=== PATIENT | female | born 1990 | race Caucasian/White ===

== ENCOUNTER 2022-10-19 17:02 | Inpatient (IN) | payer BC, MEDICAID ==
[~2022-10-19] VITALS: Ht 170.2 cm; Wt 93.0 kg
[~2022-10-19 17:02] MED LIST: LACT1CAP65 PO; NO HOME MEDS
[2022-10-19 18:56] LABS: BASOPHILS % (AUTO) 0.2 % (0-1); EOSINOPHILS % (AUTO) 0.1 % (0-6); HEMATOCRIT 41.4 % (35.0-45.0); HEMOGLOBIN 13.8 g/dl (12.0-16.0); LYMPHOCYTES # (AUTO) 0.7 X10'3 (1.1-4.8); LYMPHOCYTES % (AUTO) 4.2 % (21-51); MEAN CORPUSCULAR HEMOGLOBIN 28.5 PG (27.0-31.0); MEAN CORPUSCULAR HGB CONC 33.2 g/dL (33.0-36.5); MEAN CORPUSCULAR VOLUME 85.7 FL (78-98); MEAN PLATELET VOLUME 7.7 FL (7.4-10.4); MONOCYTES # (AUTO) 1.2 X10'3 (0-0.9); MONOCYTES % (AUTO) 6.9 % (2-12); NEUTROPHILS # (AUTO) 14.8 X10'3 (1.8-7.7); NEUTROPHILS % (AUTO) 88.6 % (42-75); PLATELET COUNT 240 X10'3 (140-440); RED BLOOD COUNT 4.83 X10'6 (4.20-5.60); RED CELL DISTRIBUTION WIDTH 14.2 % (11.5-14.5); WHITE BLOOD COUNT 16.7 X10'3 (4.5-11.0)
[2022-10-19] MEDS ORDERED: ondansetron/PF 4mg/2ml inj IV ONE (19:10)
[2022-10-19] MEDS ORDERED: morphine 4 MG/ML inj SYRINge IV ONE (19:10)
[2022-10-19] MEDS ORDERED: ketorolac tromethamine 15mg/ml inj. IV ONE (19:10)
[2022-10-19 19:16] LABS: ALANINE AMINOTRANSFERASE 31 U/L (12-78); ALBUMIN 3.5 G/DL (3.4-5.0); ALBUMIN/GLOBULIN RATIO 0.9 (1.1-1.5); ALKALINE PHOSPHATASE 77 IU/L (46-116); ANION GAP 9 (8-16); ASPARTATE AMINO TRANSFERASE 28 U/L (10-37); BILIRUBIN,TOTAL 0.8 MG/DL (0.1-1.0); BLOOD UREA NITROGEN 13 MG/DL (7-18); BUN/CREATININE RATIO 12.9 (6.6-38.0); CALCIUM 8.9 MG/DL (8.5-10.1); CHLORIDE 99 MMOL/L (99-107); CREATININE 1.01 MG/DL (0.40-0.90); GLUCOSE 99 MG/DL (70-104); LIPASE < 50 U/L (73-393); SODIUM 132 MMOL/L (135-145); TOTAL CARBON DIOXIDE 24.3 MMOL/L (24-32); TOTAL PROTEIN 7.3 G/DL (6.4-8.2); eGFR 65 ML/MIN
[2022-10-19 19:21] LABS: CLARITY,URINE CLOUDY (Clear); COLOR,URINE YELLOW (Yellow); GLUCOSE, URINE NEGATIVE (Neg); KETONES,URINE 15 mg/dl (Neg); LEUKOCYTE ESTERASE ,URINE LARGE (Neg); NITRITES, URINE POSITIVE (Neg); OCCULT BLOOD,URINE SMALL (Neg); PROTEIN,URINE 30 mg/dl (Neg); UROBILINOGEN,URINE 0.2 E.U/dL (0.2-1.0)
[2022-10-19 19:25] LABS: UA COLLECTION TYPE CLN CATCH MIDSTREAM
[2022-10-19] MEDS ORDERED: CefTRIAXone 2gm/D5W 50ml BAG 50 ML IV ONE (19:25)
[2022-10-19] MEDS ORDERED: normal saline 1000ML IV soln IV ONE (19:25)
[2022-10-19 19:27] LABS: BACTERIA,URINE 3+ /HPF (Neg); SQUAMOUS EPITHELIAL CELL,UR FEW /LPF (FEW); WBC,URINE TNTC /HPF (0-4)
[2022-10-19 19:35] LABS: URINE HCG NEGATIVE (NEG)
[2022-10-19] MEDS ORDERED: temazepam 15mg capsule PO PRN (21:00)
[2022-10-19] MEDS ORDERED: acetaminophen 325mg tablet PO PRN ×2 (21:45)
[2022-10-19] MEDS ORDERED: magnesium Cl slow-release 64mg tablet PO PRN (21:45)
[2022-10-19] MEDS: nicotine 14mg patch - 24hr TD SCH (21:45)
[2022-10-19] MEDS ORDERED: morphine 2 MG/ML inj. syringe IV PRN (21:45)
[2022-10-19] MEDS ORDERED: HYDROcodone/acetaminophen 5mg/325mg tablet PO PRN (21:45)
[2022-10-19] MEDS ORDERED: potassium Cl 20 mEq SR tablet PO PRN ×2 (21:45)
[2022-10-19] MEDS ORDERED: magnesium 4gm in 100ml NS 100 ML IV PRN (21:45)
[2022-10-19] MEDS ORDERED: potassium Cl 40MEQ/1/2NS 520ml 520 ML IV PRN (21:45)
[2022-10-19] MEDS: pantoprazole 40MG/NS 100ML BAG 100 ML IV SCH (22:56)
[2022-10-19] MEDS: HYDROcodone/acetaminophen 10/325mg tab PO PRN (22:56)
[2022-10-19] MEDS: normal saline 1000ml 1,000 ML IV SCH (23:10)
[2022-10-20] VITALS (7 sets, daily range): BP systolic 98–122; BP diastolic 62–79
[2022-10-20 03:34] LABS: BASOPHILS % (AUTO) 0.1 % (0-1); EOSINOPHILS % (AUTO) 0.1 % (0-6); HEMATOCRIT 36.5 % (35.0-45.0); LYMPHOCYTES # (AUTO) 0.6 X10'3 (1.1-4.8); MEAN CORPUSCULAR HEMOGLOBIN 28.6 PG (27.0-31.0); MEAN CORPUSCULAR HGB CONC 32.9 g/dL (33.0-36.5); MEAN CORPUSCULAR VOLUME 86.8 FL (78-98); MEAN PLATELET VOLUME 7.6 FL (7.4-10.4); MONOCYTES # (AUTO) 0.8 X10'3 (0-0.9); MONOCYTES % (AUTO) 6.4 % (2-12); NEUTROPHILS # (AUTO) 11.3 X10'3 (1.8-7.7); NEUTROPHILS % (AUTO) 88.4 % (42-75); PLATELET COUNT 149 X10'3 (140-440); RED CELL DISTRIBUTION WIDTH 14.6 % (11.5-14.5); WHITE BLOOD COUNT 12.8 X10'3 (4.5-11.0)
[2022-10-20 03:51] LABS: ALANINE AMINOTRANSFERASE 21 U/L (12-78); ALBUMIN 2.7 G/DL (3.4-5.0); ALBUMIN/GLOBULIN RATIO 0.8 (1.1-1.5); ALKALINE PHOSPHATASE 65 IU/L (46-116); ANION GAP 7 (8-16); ASPARTATE AMINO TRANSFERASE 20 U/L (10-37); BILIRUBIN,TOTAL 0.6 MG/DL (0.1-1.0); BLOOD UREA NITROGEN 11 MG/DL (7-18); BUN/CREATININE RATIO 10.8 (6.6-38.0); CALCIUM 7.8 MG/DL (8.5-10.1); CHLORIDE 104 MMOL/L (99-107); CREATININE 1.02 MG/DL (0.40-0.90); GLUCOSE 87 MG/DL (70-104); POTASSIUM 3.8 MMOL/L (3.5-5.1); SODIUM 135 MMOL/L (135-145); TOTAL CARBON DIOXIDE 24.1 MMOL/L (24-32); TOTAL PROTEIN 5.9 G/DL (6.4-8.2); eGFR 64 ML/MIN
--- NOTE | 2022-10-20 04:47 | NUR ---
Provider notified of recurrent fever, provider advised additional administration of tylenol.
[2022-10-20] MEDS: HYDROcodone/acetaminophen 10/325mg tab PO PRN ×3 (04:51→21:34)
[2022-10-20] MEDS: normal saline 1000ml 1,000 ML IV SCH ×3 (07:31→21:45)
[2022-10-20] MEDS: heparin, porcine 5000 units/ml vial SQ SCH ×2 (07:36→20:00)
[2022-10-20] MEDS: pantoprazole 40MG/NS 100ML BAG 100 ML IV SCH (07:36)
[2022-10-20] MEDS: nicotine 14mg patch - 24hr TD SCH (07:38)
[2022-10-20] MEDS: morphine 2 MG/ML inj. syringe IV PRN ×3 (08:40→22:16)
[2022-10-20] MEDS: CefTRIAXone 2gm/D5W 50ml BAG 50 ML IV SCH (08:40)
[2022-10-20] MEDS: ondansetron/PF 4mg/2ml inj IV PRN ×3 (10:04→22:11)
--- NOTE | 2022-10-20 10:49 | NUR ---
PAGE SENT TO DR CHILDERS AT THIS TIME PER PATIENT REQUEST FOR PRN TORADOL INJECTION. PATIENT STATES MORPHINE AND NORCO DID NOT HELP WITH PAIN "...ENOUGH...".
--- NOTE | 2022-10-20 15:16 | NUR ---
Pt arrived to PCU at 1450 and down to surgery with Dr Mora at 1515.
[2022-10-20] MEDS ORDERED: iohexol 350MG/ML 100ml bottle IV ONE (15:18)
[2022-10-20] MEDS ORDERED: meperidine/PF 25mg/ml syringe IV PRN ×3 (15:20)
[2022-10-20] MEDS ORDERED: proCHLORperazine 10 MG/2 ml inj IV PRN (15:20)
[2022-10-20] MEDS ORDERED: morphine 4 MG/ML inj SYRINge IV PRN (15:20)
[2022-10-20] MEDS ORDERED: morphine 2 MG/ML inj. syringe IV PRN (15:20)
[2022-10-20] MEDS ORDERED: ondansetron/PF 4mg/2ml inj IV PRN (15:20)
[2022-10-20] MEDS ORDERED: ringers solution, lacted 1,000 ML IV SCH (15:20)
[2022-10-20] MEDS ORDERED: midazolam 1 mg/ML 2ml injection ONE (15:28)
[2022-10-20] MEDS ORDERED: FENTANYL CITRATE/PF 50 MCG/1 ML VIAL ONE (15:28)
[2022-10-20] MEDS ORDERED: rocuronium 10mg/ml inj IV ONE (15:32)
[2022-10-20] MEDS ORDERED: propofol inj 20 ML IV ONE (15:32)
[2022-10-20] MEDS ORDERED: LIDOcaine 2% (20mg/ml) 5ml vial ONE (15:32)
[2022-10-20] MEDS ORDERED: sevoflurane 250ml liquid IH ONE (15:42)
[2022-10-20] MEDS ORDERED: acetaminophen 1,000mg/100ml IV 100 ML IV ONE (16:08)
[2022-10-20] MEDS ORDERED: iohexol 350 MG/ML 50ML vial IV ONE (16:23)
[2022-10-20] MEDS ORDERED: neostigmine methylsulfate 1 MG/ML 10ml vial ONE (16:28)
[2022-10-20] MEDS ORDERED: glycopyrrolate 0.2mg/ml inj ONE (16:28)
[2022-10-20] MEDS ORDERED: dexamethasone sod phosphate 4mg/ml inj. ONE (16:28)
[2022-10-20] MEDS ORDERED: ondansetron/PF 4mg/2ml inj ONE (16:28)
[2022-10-20] MEDS ORDERED: sugammadex 200mg/2ml injection IV ONE (16:33)
[2022-10-20] MEDS ORDERED: meperidine/PF 25mg/ml syringe ONE (16:49)
--- NOTE | 2022-10-20 16:51 | NUR ---
RECEIVED PATIENT FROM THE OPERATING ROOM IN STABLE CONDITION. REPORT RECEIVED FROM ANESTHESIOLOGIST, DR LOMELI. PT DENIES PAIN, SLEEPY BUT AROUSABLE. VITAL SIGNS STABLE
--- NOTE | 2022-10-20 17:21 | NUR ---
REPORT CALLED TO TERRY LYNCH IN [place]. PT TRANSFERRED IN STABLE CONDITION VIA HOSPITAL BED TO THE FLOOR.
--- NOTE | 2022-10-21 | NUR ---
Pt. is awake alert oriented c/o constipation for several days received oil enema and is now having multiple light brown bm. Had one very large formed ball-like mass. Medicated for mild discomfort. pt states feels better and was able to rest. Addendum: 10/21/22 at 1913 by Dee Dee Forman RN Wrong Patient:Disregard
--- NOTE | 2022-10-21 | NUR ---
Pt. is awake alert oriented post op day 1 c/o painful urination post op. small amt of bleeding drops of pinkish serosanguineous drainage. IV infusing NS @125.Urine axel orange color large amts.. Medicated with alternating Morphine to Narco. Has effective pain relief but states is nervous and unable to sleep. Pt. is worried about kids. Would like to go home on pain meds.
[2022-10-21] MEDS: HYDROcodone/acetaminophen 10/325mg tab PO PRN ×6 (01:23→22:11)
[2022-10-21] MEDS: morphine 2 MG/ML inj. syringe IV PRN ×4 (02:05→19:27)
[2022-10-21 02:11] VITALS: BP 114/82
--- NOTE | 2022-10-21 04:00 | NUR ---
Pt. is tolerating fluids and clear liquid diet , c/o swelling hands and feet. IV changed to tko for now.
--- NOTE | 2022-10-21 05:00 | NUR ---
Night summary Pt. is awake alert post op day 1ureteral stent placement. IV NS infusing at 125ml/hr. C/o serosanguineous drainage after voiding medicated for pain as needed. Small stones filtered from urine small white specks small red clots and a larger black stone. Takes po fluid and clear liq diet well drinking large amts of fluids voiding frequently per BS commode. During the shift , pt. c/o having increased pain medicated alternating between po and IV administration. C/o swelling in hands and feet; IV decreased to TKO.
--- NOTE | 2022-10-21 05:00 | NUR ---
Addendum:Pt. states unable to sleep feels anxious would like to get home to children when cleared to go home. Will request from primary antianxiety med or sleeping pill as needed.
[2022-10-21] MEDS: normal saline 1000ml 1,000 ML IV SCH ×3 (05:47→21:11)
[2022-10-21 06:59] LABS: BASOPHILS % (AUTO) 0.1 % (0-1); EOSINOPHILS % (AUTO) 0 % (0-6); HEMATOCRIT 34.1 % (35.0-45.0); HEMOGLOBIN 11.4 g/dl (12.0-16.0); LYMPHOCYTES # (AUTO) 0.7 X10'3 (1.1-4.8); LYMPHOCYTES % (AUTO) 7.1 % (21-51); MEAN CORPUSCULAR HEMOGLOBIN 28.9 PG (27.0-31.0); MEAN CORPUSCULAR HGB CONC 33.3 g/dL (33.0-36.5); MEAN CORPUSCULAR VOLUME 86.8 FL (78-98); MONOCYTES # (AUTO) 0.8 X10'3 (0-0.9); MONOCYTES % (AUTO) 7.3 % (2-12); NEUTROPHILS # (AUTO) 8.9 X10'3 (1.8-7.7); NEUTROPHILS % (AUTO) 85.5 % (42-75); PLATELET COUNT 144 X10'3 (140-440); RED BLOOD COUNT 3.93 X10'6 (4.20-5.60); RED CELL DISTRIBUTION WIDTH 14.1 % (11.5-14.5); WHITE BLOOD COUNT 10.4 X10'3 (4.5-11.0)
[2022-10-21 07:00] VITALS: BP 135/97
[2022-10-21 07:17] LABS: ALANINE AMINOTRANSFERASE 16 U/L (12-78); ALBUMIN 2.5 G/DL (3.4-5.0); ALBUMIN/GLOBULIN RATIO 0.7 (1.1-1.5); ALKALINE PHOSPHATASE 66 IU/L (46-116); ANION GAP 9 (8-16); ASPARTATE AMINO TRANSFERASE 14 U/L (10-37); BILIRUBIN,TOTAL 0.4 MG/DL (0.1-1.0); BLOOD UREA NITROGEN 9 MG/DL (7-18); BUN/CREATININE RATIO 11.7 (6.6-38.0); CALCIUM 8.7 MG/DL (8.5-10.1); CHLORIDE 105 MMOL/L (99-107); CREATININE 0.77 MG/DL (0.40-0.90); GLUCOSE 96 MG/DL (70-104); MAGNESIUM 1.9 MG/DL (1.5-2.4); PHOSPHORUS 2.9 MG/DL (2.3-4.5); POTASSIUM 4.1 MMOL/L (3.5-5.1); SODIUM 136 MMOL/L (135-145); TOTAL CARBON DIOXIDE 22.1 MMOL/L (24-32); TOTAL PROTEIN 5.9 G/DL (6.4-8.2); eGFR 89 ML/MIN
[2022-10-21] MEDS: ondansetron/PF 4mg/2ml inj IV PRN (07:20)
[2022-10-21] MEDS: heparin, porcine 5000 units/ml vial SQ SCH ×2 (07:21→19:27)
[2022-10-21] MEDS: nicotine 14mg patch - 24hr TD SCH (07:21)
[2022-10-21] MEDS: CefTRIAXone 2gm/D5W 50ml BAG 50 ML IV SCH (07:22)
[2022-10-21] MEDS: pantoprazole 40MG/NS 100ML BAG 100 ML IV SCH (08:00)
[2022-10-21 18:00] VITALS: BP 146/105
--- NOTE | 2022-10-21 18:22 | NUR ---
Patient in room PCU 3018. I have received report from CRIS STEWART and had the opportunity to ask questions and assume patient care.
--- NOTE | 2022-10-21 19:40 | NUR ---
Problems reprioritized. Patient report given, questions answered & plan of care reviewed with CRIS MATHEWS.
[2022-10-21 22:00] VITALS: BP 143/112
[2022-10-22] MEDS: morphine 2 MG/ML inj. syringe IV PRN ×2 (00:27→08:21)
[2022-10-22 02:00] VITALS: BP 111/77
[2022-10-22] MEDS: HYDROcodone/acetaminophen 10/325mg tab PO PRN ×4 (02:10→15:41)
[2022-10-22] MEDS: normal saline 1000ml 1,000 ML IV SCH (05:45)
--- NOTE | 2022-10-22 06:06 | NUR ---
Problems reprioritized. Patient report given, questions answered & plan of care reviewed with CRIS Mckeon.
--- NOTE | 2022-10-22 06:39 | NUR ---
Patient in room PCU 3018B. I have received report from Toshia LYNCH and had the opportunity to ask questions and assume patient care. Pt is layinh high fowlers in bed. Pt on RA. No s/s of distress. Pt declines c/o pain at this time. 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 Will continue to monitor.
[2022-10-22 06:55] LABS: BASOPHILS % (AUTO) 0.3 % (0-1); EOSINOPHILS # (AUTO) 0.1 X10'3 (0-0.9); EOSINOPHILS % (AUTO) 1.1 % (0-6); HEMATOCRIT 33.8 % (35.0-45.0); HEMOGLOBIN 11.2 g/dl (12.0-16.0); LYMPHOCYTES # (AUTO) 1.3 X10'3 (1.1-4.8); LYMPHOCYTES % (AUTO) 22.9 % (21-51); MEAN CORPUSCULAR HEMOGLOBIN 28.7 PG (27.0-31.0); MEAN CORPUSCULAR HGB CONC 33.2 g/dL (33.0-36.5); MEAN CORPUSCULAR VOLUME 86.6 FL (78-98); MEAN PLATELET VOLUME 7.7 FL (7.4-10.4); MONOCYTES # (AUTO) 0.4 X10'3 (0-0.9); MONOCYTES % (AUTO) 7.7 % (2-12); NEUTROPHILS # (AUTO) 3.9 X10'3 (1.8-7.7); PLATELET COUNT 150 X10'3 (140-440); RED CELL DISTRIBUTION WIDTH 14.4 % (11.5-14.5); WHITE BLOOD COUNT 5.8 X10'3 (4.5-11.0)
[2022-10-22 07:12] LABS: ANION GAP 6 (8-16); BLOOD UREA NITROGEN 8 MG/DL (7-18); BUN/CREATININE RATIO 9.4 (6.6-38.0); CHLORIDE 107 MMOL/L (99-107); CREATININE 0.85 MG/DL (0.40-0.90); GLUCOSE 91 MG/DL (70-104); MAGNESIUM 1.6 MG/DL (1.5-2.4); PHOSPHORUS 2.7 MG/DL (2.3-4.5); POTASSIUM 3.5 MMOL/L (3.5-5.1); SODIUM 139 MMOL/L (135-145); TOTAL CARBON DIOXIDE 25.6 MMOL/L (24-32); eGFR 79 ML/MIN
[2022-10-22 07:13] LABS: ALANINE AMINOTRANSFERASE 18 U/L (12-78); ALBUMIN 2.4 G/DL (3.4-5.0); ALBUMIN/GLOBULIN RATIO 0.8 (1.1-1.5); ALKALINE PHOSPHATASE 62 IU/L (46-116); ASPARTATE AMINO TRANSFERASE 11 U/L (10-37); BILIRUBIN,TOTAL 0.2 MG/DL (0.1-1.0); TOTAL PROTEIN 5.5 G/DL (6.4-8.2)
[2022-10-22] MEDS: nicotine 14mg patch - 24hr TD SCH (08:19)
[2022-10-22] MEDS: CefTRIAXone 2gm/D5W 50ml BAG 50 ML IV SCH (08:30)
[2022-10-22] MEDS: pantoprazole 40MG/NS 100ML BAG 100 ML IV SCH (08:30)
[2022-10-22] MEDS: heparin, porcine 5000 units/ml vial SQ SCH (08:31)
--- NOTE | 2022-10-22 12:05 | NUR ---
Message: TamwhitShreyas reyesy 3018 B: BP 172/122 with machine, 160/100 manual. -Linda EXT [phone] Addendum: 10/22/22 at 1349 by Linda Quijano RN phoned back, new orders imputed. Please see eMAR
[2022-10-22 12:11] VITALS: BP 160/100
[2022-10-22] MEDS ORDERED: cloNIDine 0.1 mg tablet PO ONE (13:40)
[2022-10-22 14:19] VITALS: BP 138/88
--- NOTE | 2022-10-22 14:21 | NUR ---
Message: Sonia Arnold [id number] B: BP re-check 138/88, HR 87. -Linda EXT [phone]
[2022-10-22] MEDS ORDERED: HYDR-3965 PO (15:20)
[2022-10-22] MEDS ORDERED: LACT1CAP26 PO (15:20)
[2022-10-22] MEDS ORDERED: PROP10TA10 PO (15:20)
[2022-10-22] MEDS ORDERED: CEFD300C3 PO (15:20)
--- NOTE | 2022-10-22 16:39 | NUR ---
Pt DC'd to sisters personal vehicle. VSS, Pt afebrile, no issues with medication. Py PIV to LFA removed. No c/o pain with the site. All discharge questions answered. All personal belongings left with PT.
[2022-10-22] MEDS ORDERED: propranolol 10mg tablet PO SCH (20:00)
[2022-10-23] MEDS ORDERED: pantoprazole 40mg Tablet.DR PO SCH (07:30)
[2022-10-23] MEDS ORDERED: HYDR-3965 PO (11:44)
== END 2022-10-22 16:39 | disposition home or self-care (01) | DRG 854 ==
LOC: ER 17:03 → ED HOLD 21:48 → PCU 3S 10-20 14:53
PROVIDERS: ADMIT Internal Medicine; ATTEND Family Medicine
PROC: 0T778DZ Dilation of Left Ureter with Intraluminal Device, Via Natural or Artificial Opening Endoscopic (ICD-10-PCS; 2022-10-20)
PROC: BT1F1ZZ Fluoroscopy of Left Kidney, Ureter and Bladder using Low Osmolar Contrast (ICD-10-PCS; 2022-10-20)
PROC: 0TB78ZZ Excision of Left Ureter, Via Natural or Artificial Opening Endoscopic (ICD-10-PCS; principal; 2022-10-20 15:42)
DX: A41.9 Sepsis, unspecified organism (principal); N13.6 Pyonephrosis; Q62.31 Congenital ureterocele, orthotopic; F12.90 Cannabis use, unspecified, uncomplicated; B96.20 Unspecified Escherichia coli [E. coli] as the cause of diseases classified elsewhere; F17.210 Nicotine dependence, cigarettes, uncomplicated; F10.90 Alcohol use, unspecified, uncomplicated; F43.10 Post-traumatic stress disorder, unspecified; I10 Essential (primary) hypertension; N28.89 Other specified disorders of kidney and ureter; Z79.899 Other long term (current) drug therapy; Z87.440 Personal history of urinary (tract) infections; Z87.442 Personal history of urinary calculi; Z88.8 Allergy status to other drugs, medicaments and biological substances; Z71.51 Drug abuse counseling and surveillance of drug abuser; Z71.6 Tobacco abuse counseling; Z71.41 Alcohol abuse counseling and surveillance of alcoholic
CPT/HCPCS: 96365; 96366; 96375; 99285; Z7506; Z7508; 36415; 74176; 74420; 76000; 80053; 81001; 81025; 83605; 83690; 83735; 84100; 84145; 85025; 87040; 87077; 87088; 87186; 93005; A4618; A7000; C1758; C1769; C2617; C9113; G0378; J0131; J0696; J1100; J1644; J1885; J2175; J2250; J2270; J2405; J2704; J2710; J3010; J3490; J7030; Q9967

== ENCOUNTER 2022-11-02 16:12 | Emergency (ER) | payer BC ==
[~2022-11-02] VITALS: Ht 170.2 cm; Wt 93.0 kg
[~2022-11-02 16:12] MED LIST changes: +CEFD300C3 PO; +HYDR-3965 PO; +LACT1CAP26 PO; -LACT1CAP65 PO; -NO HOME MEDS; +PROP10TA10 PO
[2022-11-02 16:56] LABS: CLARITY,URINE CLOUDY (Clear); COLOR,URINE YELLOW (Yellow); GLUCOSE, URINE NEGATIVE (Neg); KETONES,URINE >=80 mg/dl (Neg); LEUKOCYTE ESTERASE ,URINE SMALL (Neg); NITRITES, URINE POSITIVE (Neg); OCCULT BLOOD,URINE MODERATE (Neg); PROTEIN,URINE 30 mg/dl (Neg); UROBILINOGEN,URINE 0.2 E.U/dL (0.2-1.0)
[2022-11-02 17:09] LABS: UA COLLECTION TYPE CLN CATCH MIDSTREAM
[2022-11-02 17:11] LABS: BACTERIA,URINE 2+ /HPF (Neg); MUCUS STRANDS MODERATE /LPF (Neg); RBC,URINE TNTC /HPF (0-2); SQUAMOUS EPITHELIAL CELL,UR MANY /LPF (FEW); WBC,URINE 50-100 /HPF (0-4)
[2022-11-02 17:46] LABS: BASOPHILS # (AUTO) 0.1 X10'3 (0-0.2); BASOPHILS % (AUTO) 0.7 % (0-1); EOSINOPHILS % (AUTO) 0.4 % (0-6); HEMOGLOBIN 13.5 g/dl (12.0-16.0); LYMPHOCYTES # (AUTO) 1.7 X10'3 (1.1-4.8); MEAN CORPUSCULAR HEMOGLOBIN 28.2 PG (27.0-31.0); MEAN CORPUSCULAR VOLUME 85.4 FL (78-98); MEAN PLATELET VOLUME 7.6 FL (7.4-10.4); MONOCYTES # (AUTO) 0.9 X10'3 (0-0.9); MONOCYTES % (AUTO) 12.2 % (2-12); NEUTROPHILS % (AUTO) 64.7 % (42-75); PLATELET COUNT 356 X10'3 (140-440); RED CELL DISTRIBUTION WIDTH 15.1 % (11.5-14.5); WHITE BLOOD COUNT 7.8 X10'3 (4.5-11.0)
[2022-11-02 19:08] LABS: ALANINE AMINOTRANSFERASE 38 U/L (12-78); ALBUMIN 3.6 G/DL (3.4-5.0); ALBUMIN/GLOBULIN RATIO 0.9 (1.1-1.5); ALKALINE PHOSPHATASE 81 IU/L (46-116); ANION GAP 7 (8-16); ASPARTATE AMINO TRANSFERASE 24 U/L (10-37); BILIRUBIN,TOTAL 0.4 MG/DL (0.1-1.0); BLOOD UREA NITROGEN 8 MG/DL (7-18); BUN/CREATININE RATIO 9.8 (6.6-38.0); CALCIUM 8.9 MG/DL (8.5-10.1); CHLORIDE 99 MMOL/L (99-107); CREATININE 0.82 MG/DL (0.40-0.90); GLUCOSE 91 MG/DL (70-104); POTASSIUM 3.6 MMOL/L (3.5-5.1); SODIUM 135 MMOL/L (135-145); TOTAL CARBON DIOXIDE 28.8 MMOL/L (24-32); TOTAL PROTEIN 7.5 G/DL (6.4-8.2); eGFR 82 ML/MIN
--- NOTE | 2022-11-02 22:00 | NUR ---
Reviewed Barrie TOMAS general assessment and RN is in agreeance.
[2022-11-02] MEDS ORDERED: CefTRIAXone 2gm/D5W 50ml BAG 50 ML IV ONE (22:10)
[2022-11-02] MEDS ORDERED: ketorolac trometh. 30mg/ml inj. IV ONE (22:15)
[2022-11-02] MEDS ORDERED: normal saline 1000ml 1,000 ML IV ONE (22:15)
[2022-11-02] MEDS ORDERED: iohexol 300mg/ml 100ml inj. ONE (22:16)
[2022-11-03 00:38] VITALS: BP 135/80
== END 2022-11-03 00:39 | disposition home or self-care (01) ==
LOC: ER 16:12
DX: N39.0 Urinary tract infection, site not specified (principal); Z20.822 Contact with and (suspected) exposure to COVID-19; R50.9 Fever, unspecified; F17.200 Nicotine dependence, unspecified, uncomplicated; F12.90 Cannabis use, unspecified, uncomplicated; Z87.442 Personal history of urinary calculi; Z87.440 Personal history of urinary (tract) infections; Z98.890 Other specified postprocedural states; Z88.8 Allergy status to other drugs, medicaments and biological substances; Z79.2 Long term (current) use of antibiotics; Z79.899 Other long term (current) drug therapy
CPT/HCPCS: 36415; 71045; 74177; 80053; 81001; 83605; 84145; 85025; 87040; 87502; 87503; 87635; 96365; 96375; 99285; C9803; J0696; J1885; J3490; J7030; Q9967

== ENCOUNTER 2023-06-21 18:24 | Inpatient (IN) | payer BC ==
[~2023-06-21] VITALS: Ht 170.2 cm; Wt 81.8 kg
[~2023-06-21 18:24] MED LIST changes: -CEFD300C3 PO; -HYDR-3965 PO
[2023-06-21] MEDS ORDERED: ondansetron/PF 4mg/2ml inj IV ONE (18:55)
[2023-06-21] MEDS ORDERED: ketorolac tromethamine 15mg/ml inj. IV ONE (18:55)
[2023-06-21] MEDS ORDERED: meperidine/PF 50mg/ml syringe IV ONE (18:55)
[2023-06-21 18:59] LABS: BASOPHILS # (AUTO) 0.1 X10'3 (0-0.2); BASOPHILS % (AUTO) 0.4 % (0-1); EOSINOPHILS % (AUTO) 0.1 % (0-6); HEMATOCRIT 43.3 % (35.0-45.0); HEMOGLOBIN 14.4 g/dl (12.0-16.0); LYMPHOCYTES # (AUTO) 0.8 X10'3 (1.1-4.8); LYMPHOCYTES % (AUTO) 5.8 % (21-51); MEAN CORPUSCULAR HEMOGLOBIN 28.3 PG (27.0-31.0); MEAN CORPUSCULAR HGB CONC 33.3 g/dL (33.0-36.5); MEAN CORPUSCULAR VOLUME 84.8 FL (78-98); MEAN PLATELET VOLUME 7.6 FL (7.4-10.4); MONOCYTES # (AUTO) 0.7 X10'3 (0-0.9); MONOCYTES % (AUTO) 5.3 % (2-12); NEUTROPHILS # (AUTO) 11.6 X10'3 (1.8-7.7); NEUTROPHILS % (AUTO) 88.4 % (42-75); PLATELET COUNT 339 X10'3 (140-440); RED CELL DISTRIBUTION WIDTH 14.7 % (11.5-14.5); WHITE BLOOD COUNT 13.2 X10'3 (4.5-11.0)
[2023-06-21] MEDS ORDERED: normal saline 1000ml 1,000 ML IV ONE (19:05)
[2023-06-21 19:11] LABS: URINE HCG NEGATIVE (NEG)
[2023-06-21 19:14] LABS: BILIRUBIN,URINE NEGATIVE (Neg); CLARITY,URINE SLIGHTLY CLOUDY (Clear); COLOR,URINE YELLOW (Yellow); GLUCOSE, URINE NEGATIVE (Neg); KETONES,URINE 15 mg/dl (Neg); LEUKOCYTE ESTERASE ,URINE SMALL (Neg); NITRITES, URINE POSITIVE (Neg); OCCULT BLOOD,URINE TRACE-INTACT (Neg); PROTEIN,URINE NEGATIVE (Neg); UROBILINOGEN,URINE 0.2 E.U/dL (0.2-1.0)
[2023-06-21 19:16] LABS: ALANINE AMINOTRANSFERASE 20 U/L (12-78); ALBUMIN/GLOBULIN RATIO 1.1 (1.1-1.5); ALKALINE PHOSPHATASE 78 IU/L (46-116); ANION GAP 11 (8-16); ASPARTATE AMINO TRANSFERASE 16 U/L (10-37); BILIRUBIN,TOTAL 0.4 MG/DL (0.1-1.0); BLOOD UREA NITROGEN 8 MG/DL (7-18); BUN/CREATININE RATIO 9.2 (10.0-20.0); CALCIUM 9.4 MG/DL (8.5-10.1); CHLORIDE 100 MMOL/L (99-107); CREATININE 0.87 MG/DL (0.40-0.90); GLUCOSE 99 MG/DL (70-104); POTASSIUM 3.8 MMOL/L (3.5-5.1); SODIUM 134 MMOL/L (135-145); TOTAL CARBON DIOXIDE 23.4 MMOL/L (24-32); TOTAL PROTEIN 7.7 G/DL (6.4-8.2); eCRCL 92 ML/MIN; eGFR 76 ML/MIN
[2023-06-21 19:26] LABS: UA COLLECTION TYPE CLN CATCH MIDSTREAM
[2023-06-21 19:40] LABS: BACTERIA,URINE 4+ /HPF (Neg); WBC,URINE 20-30 /HPF (0-4)
[2023-06-21 19:41] LABS: MUCUS STRANDS FEW /LPF (Neg); SQUAMOUS EPITHELIAL CELL,UR FEW /LPF (FEW); TRANSITIONAL EPI CELLS,URINE FEW /HPF; WBC CLUMPS,URINE FEW /HPF (NEGATIVE)
[2023-06-21] MEDS ORDERED: CefTRIAXone/D5W-Rocephin 1gm 50 ML IV ONE (21:35)
[2023-06-22] VITALS (10 sets, daily range): BP systolic 123–156; BP diastolic 79–110; PULSE 70–96; RESP 12–18; TEMP 97.8–101.2; O2SAT 98–100
[2023-06-22] MEDS ORDERED: ondansetron/PF 4mg/2ml inj IV STA (00:34)
--- NOTE | 2023-06-22 02:27 | NUR ---
report called to floor nurse. tx to room 4015 by nurse
[2023-06-22] MEDS ORDERED: potassium Cl 20 mEq SR tablet PO PRN (03:05)
[2023-06-22] MEDS ORDERED: magnesium 2GM in 50ml NS 50 ML IV PRN (03:05)
[2023-06-22] MEDS ORDERED: magnesium 4gm in 100ml NS 100 ML IV PRN (03:05)
[2023-06-22] MEDS ORDERED: potassium Cl 40MEQ/1/2NS 520ml 520 ML IV PRN (03:05)
[2023-06-22] MEDS ORDERED: magnesium Cl slow-release 64mg tablet PO PRN (03:05)
[2023-06-22] MEDS: normal saline 1000ml 1,000 ML IV SCH ×3 (03:28→23:05)
[2023-06-22] MEDS: acetaminophen 325mg tablet PO PRN ×3 (03:53→22:16)
[2023-06-22 06:59] LABS: MAGNESIUM 1.7 MG/DL (1.5-2.4); POTASSIUM 3.5 MMOL/L (3.5-5.1)
[2023-06-22] MEDS: K and/or MAG REPLACEMENT MC SCH ×2 (08:00→20:00)
[2023-06-22] MEDS: morphine 2 MG/ML inj. syringe IV PRN ×2 (14:38→21:04)
[2023-06-22] MEDS ORDERED: IBUP-1985 PO (15:55)
--- NOTE | 2023-06-22 16:56 | NUR ---
PAGER ID: [phone] MESSAGE: [id number] Kathleen bp elevated, no prn ordered 147/108 Deborah [phone]
[2023-06-22] MEDS: nicotine 14mg patch - 24hr TD SCH (17:58)
[2023-06-22] MEDS: hydrALAZINE 20mg/ml inj. IV PRN (18:13)
--- NOTE | 2023-06-22 18:20 | NUR ---
Report to Austin LYNCH
--- NOTE | 2023-06-22 19:15 | NUR ---
report give to denton. pt requesting pain medication prior to going to the bathroom. roommate just transfered out of the room.
--- NOTE | 2023-06-22 19:23 | NUR ---
Patient in room ORTHO 4015. I have received report from stephanie cook and had the opportunity to ask questions and assume patient care.
[2023-06-22] MEDS: CefTRIAXone/D5W-Rocephin 1gm 50 ML IV SCH (21:05)
[2023-06-23] VITALS (7 sets, daily range): BP systolic 137–176; BP diastolic 86–114; PULSE 70–101; RESP 14–18; TEMP 97.7–98.9; O2SAT 96–100
[2023-06-23] MEDS: HYDROmorphone inj. 0.5 MG/0.5 ML DISP.SYRIN IV PRN ×6 (01:43→23:04)
[2023-06-23] MEDS: ondansetron/PF 4mg/2ml inj IV PRN ×4 (01:49→23:03)
--- NOTE | 2023-06-23 06:09 | NUR ---
Problems reprioritized. Patient report given, questions answered & plan of care reviewed with beck granados.
--- NOTE | 2023-06-23 06:31 | NUR ---
Patient in room ORTHO 4015. I have received report from CRIS Gaxiola and had the opportunity to ask questions and assume patient care.
--- NOTE | 2023-06-23 06:36 | NUR ---
I have received report from CRIS Lin and had the opportunity to ask questions and assume patient care. No distress at this time.
[2023-06-23] MEDS: nicotine 14mg patch - 24hr TD SCH (06:41)
[2023-06-23 07:41] LABS: ALBUMIN 3.1 G/DL (3.4-5.0); ANION GAP 10 (8-16); BLOOD UREA NITROGEN 7 MG/DL (7-18); BUN/CREATININE RATIO 10.8 (10.0-20.0); CALCIUM 8.3 MG/DL (8.5-10.1); CHLORIDE 103 MMOL/L (99-107); CREATININE 0.65 MG/DL (0.40-0.90); GLUCOSE 88 MG/DL (70-104); MAGNESIUM 1.9 MG/DL (1.5-2.4); POTASSIUM 3.4 MMOL/L (3.5-5.1); SODIUM 138 MMOL/L (135-145); TOTAL CARBON DIOXIDE 25.2 MMOL/L (24-32); eCRCL 123 ML/MIN; eGFR > 90 ML/MIN
[2023-06-23 07:50] LABS: BASOPHILS % (AUTO) 0.5 % (0-1); EOSINOPHILS # (AUTO) 0.1 X10'3 (0-0.9); HEMATOCRIT 38.4 % (35.0-45.0); HEMOGLOBIN 12.7 g/dl (12.0-16.0); LYMPHOCYTES # (AUTO) 1.5 X10'3 (1.1-4.8); MEAN CORPUSCULAR HEMOGLOBIN 28.5 PG (27.0-31.0); MEAN CORPUSCULAR VOLUME 86.3 FL (78-98); MEAN PLATELET VOLUME 8.2 FL (7.4-10.4); MONOCYTES # (AUTO) 0.9 X10'3 (0-0.9); MONOCYTES % (AUTO) 13.3 % (2-12); NEUTROPHILS # (AUTO) 4.5 X10'3 (1.8-7.7); NEUTROPHILS % (AUTO) 64.2 % (42-75); PLATELET COUNT 234 X10'3 (140-440); RED BLOOD COUNT 4.45 X10'6 (4.20-5.60); RED CELL DISTRIBUTION WIDTH 14.5 % (11.5-14.5)
[2023-06-23] MEDS: K and/or MAG REPLACEMENT MC SCH ×2 (08:53→20:00)
[2023-06-23] MEDS: normal saline 1000ml 1,000 ML IV SCH ×3 (09:09→21:25)
[2023-06-23] MEDS: potassium Cl 20 mEq SR tablet PO PRN ×3 (10:17→17:06)
[2023-06-23] MEDS: acetaminophen 325mg tablet PO PRN ×3 (10:23→23:09)
--- NOTE | 2023-06-23 12:20 | NUR ---
Student documentation: Katya Manrique [employer]PER[employer] instructor for [facility], have reviewed all interventions, assessments performed and documented by Karely Student Nurse for [facility].
[2023-06-23] MEDS: hydrALAZINE 20mg/ml inj. IV PRN (12:57)
[2023-06-23] MEDS ORDERED: HYDROcodone/acetaminophen 10/325mg tab PO PRN (15:35)
[2023-06-23] MEDS ORDERED: HYDROcodone/acetaminophen 5mg/325mg tablet PO PRN ×2 (15:35)
[2023-06-23] MEDS: HYDROcodone/acetaminophen 10/325mg tab PO PRN (15:49)
--- NOTE | 2023-06-23 16:29 | NUR ---
Malnutrition consult: Pt admit for sepsis secondary to pyelonephritis and hyponatremia per EMR. Per RN malnutrition screen, pt repors 34 or more weight loss, unsure of wt loss in 3 months, and a decreased in PO intake/appetite. Pt seen at bedside, reports UBW of 210-215 pounds however states she has been in the 200s recently. Pt states weighing herself last at home before coming in and was 200 pounds. Scaled wt this admit of 81.8kg (180 pounds) with prior wt hx in EMR of 93kg (205 pounds) on 11/03/22. Pt reports changes in dietary habits such as cutting out sugar thus switching to sugar free beverages, trying to cut out cheese products and milk since sometimes it upsets her stomach, and trying to switch over to a Mediterranean eating style. Pt also reports exercising more including running on the treadmill and going to the gym thus suspect weight loss has been gradual and intentional per our discussion. Pt appeared physically nourished with no signs of muscle or fat wasting at this time. Pt is currently on a regular diet with 50% x 4 meals however pt states appetite is starting to get a bit better and noted 75% intake of last two meals. Pt declined food preferences at this time. Additionally pt does not have edema. Pt does not meet a minimum of two malnutrition criteria at this time. LBM on 06/21 per EMR. Will continue to monitor. Recommendations: 1.continue regular diet 2.monitor PO intake and need for ONS 3.routine bowel care 4.weekly scaled wts Addendum: 06/23/23 at [address] Amended: Links added.
--- NOTE | 2023-06-23 18:08 | NUR ---
PT states last 06/21/2023 Addendum: 06/23/23 at 1813 by Canelo MC Amended: Links added.
--- NOTE | 2023-06-23 18:09 | NUR ---
Patient states stool soft and formed on last BM, 06/21/23 Addendum: 06/23/23 at 1813 by Canelo MC Amended: Links added.
--- NOTE | 2023-06-23 18:11 | NUR ---
Patient states "voiding feels like I am passing a stone" Addendum: 06/23/23 at 1813 by Canelo MC Amended: Links added.
--- NOTE | 2023-06-23 18:17 | NUR ---
Charting by Canelo POSEY reviewed by Chris Laguna RN
--- NOTE | 2023-06-23 18:28 | NUR ---
Patient in room ORTHO 4015. I have received report from CRIS Gonsalez and had the opportunity to ask questions and assume patient care.
--- NOTE | 2023-06-23 18:30 | NUR ---
Reviewed Sunshine Fu RN physical assessment and agree with the documentation.
[2023-06-23] MEDS: CefTRIAXone/D5W-Rocephin 1gm 50 ML IV SCH (20:44)
[2023-06-24] MEDS: HYDROcodone/acetaminophen 10/325mg tab PO PRN ×4 (00:02→13:22)
--- NOTE | 2023-06-24 02:58 | NUR ---
Problems reprioritized. Patient report given, questions answered & plan of care reviewed with CRIS Walsh.
[2023-06-24] MEDS: HYDROmorphone inj. 0.5 MG/0.5 ML DISP.SYRIN IV PRN ×3 (03:20→11:43)
[2023-06-24] MEDS ORDERED: magnesium hydroxide 30ml (MOM) UD suspension PO PRN (05:00)
[2023-06-24] MEDS: ondansetron/PF 4mg/2ml inj IV PRN (05:15)
[2023-06-24] MEDS: acetaminophen 325mg tablet PO PRN (05:16)
[2023-06-24] MEDS: normal saline 1000ml 1,000 ML IV SCH (05:44)
[2023-06-24 06:00] VITALS: BP 123/80; PULSE 64; RESP 14; TEMP 98.7; O2SAT 98
--- NOTE | 2023-06-24 06:10 | NUR ---
Problems reprioritized. Patient report given, questions answered & plan of care reviewed with GENOVEVA Holt & CRIS Zaldivar.
--- NOTE | 2023-06-24 06:25 | NUR ---
I have received report from CRIS Walsh and had the opportunity to ask questions and assume patient care. No distress at this time.
[2023-06-24 06:52] LABS: BASOPHILS % (AUTO) 0.7 % (0-1); EOSINOPHILS # (AUTO) 0.1 X10'3 (0-0.9); HEMATOCRIT 38.4 % (35.0-45.0); HEMOGLOBIN 12.7 g/dl (12.0-16.0); LYMPHOCYTES # (AUTO) 1.7 X10'3 (1.1-4.8); MEAN CORPUSCULAR HEMOGLOBIN 28.3 PG (27.0-31.0); MEAN CORPUSCULAR HGB CONC 33.1 g/dL (33.0-36.5); MEAN CORPUSCULAR VOLUME 85.4 FL (78-98); MEAN PLATELET VOLUME 8.1 FL (7.4-10.4); MONOCYTES # (AUTO) 0.6 X10'3 (0-0.9); MONOCYTES % (AUTO) 11.7 % (2-12); NEUTROPHILS # (AUTO) 2.4 X10'3 (1.8-7.7); NEUTROPHILS % (AUTO) 50.6 % (42-75); PLATELET COUNT 250 X10'3 (140-440); RED BLOOD COUNT 4.49 X10'6 (4.20-5.60); RED CELL DISTRIBUTION WIDTH 14.4 % (11.5-14.5); WHITE BLOOD COUNT 4.7 X10'3 (4.5-11.0)
[2023-06-24 06:56] LABS: ANION GAP 7 (8-16); BLOOD UREA NITROGEN 9 MG/DL (7-18); BUN/CREATININE RATIO 13.6 (10.0-20.0); CALCIUM 8.5 MG/DL (8.5-10.1); CHLORIDE 105 MMOL/L (99-107); CREATININE 0.66 MG/DL (0.40-0.90); GLUCOSE 89 MG/DL (70-104); SODIUM 138 MMOL/L (135-145); eCRCL 121 ML/MIN; eGFR > 90 ML/MIN
[2023-06-24 06:57] LABS: ALBUMIN 2.9 G/DL (3.4-5.0); MAGNESIUM 1.9 MG/DL (1.5-2.4)
[2023-06-24] MEDS: nicotine 14mg patch - 24hr TD SCH (07:33)
[2023-06-24 08:00] VITALS: RESP 16; O2SAT 98
[2023-06-24] MEDS: K and/or MAG REPLACEMENT MC SCH (08:00)
[2023-06-24 10:00] VITALS: BP 143/92; PULSE 85; RESP 16; TEMP 97.5; O2SAT 100
[2023-06-24 11:43] VITALS: RESP 18
[2023-06-24] MEDS ORDERED: D-MA500C PO (12:47)
[2023-06-24] MEDS ORDERED: NICO-631 TD (12:47)
[2023-06-24] MEDS ORDERED: HYDR-3972 PO (12:47)
[2023-06-24] MEDS ORDERED: LEVO-65 PO (12:47)
--- NOTE | 2023-06-24 13:00 | NUR ---
INFORMATION BROKER documentation: I have reviewed and agree with all interventions, assessments performed and documented by Yanet Valverde LVN.
--- NOTE | 2023-06-24 13:25 | NUR ---
Patient discharged alert and oriented accompanied by spouse. Patients' spouse drove her home. IV d/c'd, cannula intact. Discharge paperwork and instructions understood, d/c paperwork signed. Patient had belongings in hands that where documented upon admission. No acute distress.
== END 2023-06-24 13:35 | disposition home or self-care (01) | DRG 872 ==
LOC: ER 18:25 → ED HOLD 22:55 → ORTHO 4S 06-22 02:35
PROVIDERS: ADMIT Internal Medicine; ATTEND Family Medicine
DX: A41.9 Sepsis, unspecified organism (principal); N13.6 Pyonephrosis; E87.1 Hypo-osmolality and hyponatremia; E87.6 Hypokalemia; B96.20 Unspecified Escherichia coli [E. coli] as the cause of diseases classified elsewhere; F17.210 Nicotine dependence, cigarettes, uncomplicated; I10 Essential (primary) hypertension; F12.90 Cannabis use, unspecified, uncomplicated; K80.80 Other cholelithiasis without obstruction; Z87.442 Personal history of urinary calculi; Z88.8 Allergy status to other drugs, medicaments and biological substances; Z79.899 Other long term (current) drug therapy
CPT/HCPCS: 36415; 74176; 80048; 80053; 81001; 81025; 83605; 83735; 84132; 84145; 85025; 87040; 87077; 87081; 87088; 87186; 99285; G0378; J0360; J0696; J1170; J1885; J2175; J2270; J2405; J7030